=== PATIENT | female | born 1965 | race Two or more races ===

== ENCOUNTER 2020-01-05 23:15 | Emergency (ER) | payer OTHER ==
[~2020-01-05] VITALS: Ht 162.6 cm; Wt 63.5 kg
[2020-01-05] MEDS ORDERED: SODIUM CHLORIDE 0.9% 1,000 ML IV ONE (23:30)
[2020-01-05] MEDS ORDERED: ONDANSETRON HCL 4 MG/2 ML VIAL IV ONE (23:30)
[2020-01-06 00:46] VITALS: BP 138/81
[2020-01-06 00:52] LABS: Basophils # (auto) 0 10 ^3/uL (0-0.2); Basophils % (auto) 0.4 % (0.0-2.0); Eosinophils # (auto) 0 10 ^3/uL (0-0.8); Eosinophils % (auto) 0.3 % (0.0-7.0); Hematocrit 37.5 % (36.0-46.0); Hemoglobin 12.7 g/dL (12.2-16.2); Lymphocytes # (auto) 0.3 10 ^3/uL (0.4-5.4); Lymphocytes % (auto) 10.6 % (10.0-50.0); Mean Corpuscular Hemoglobin 29.4 pg (28.0-32.0); Mean Corpuscular Hgb Conc. 33.8 g/dL (32.0-36.0); Mean Corpuscular Volume 86.8 fL (80.0-100.0); Monocytes # (auto) 0.3 10 ^3/uL (0-1.3); Monocytes % (auto) 11.7 % (0.0-12.0); Neutrophils # (auto) 1.9 10 ^3/uL (1.6-8.6); Nucleated Red Blood Cells % 0.1 %; Platelet Count (auto) 96 10^3/uL (140-450); Red Blood Cells 4.32 10^6/uL (4.0-5.20); Red Cell Distribution Width 17.5 % (11.8-14.3); White Blood Cell 2.4 10^3/uL (4.4-10.8)
[2020-01-06 01:09] LABS: INR 0.96 (0.9-1.15); Partial Thromboplastin Time 31.9 sec (23.64-32.05)
[2020-01-06 01:12] LABS: Lactic Acid w/Reflex 2.6 mmol/L (0.4-2.0)
[2020-01-06 01:14] LABS: Alanine Aminotransferase 23 U/L (13-56); Albumin 4.1 g/dL (3.4-5.0); Anion Gap 13 (5-15); Aspartate Aminotransferase 27 U/L (15-37); BUN/Creatinine Ratio 14.3; Blood Urea Nitrogen 9 mg/dL (7-18); Calcium 8.5 mg/dL (8.5-10.1); Carbon Dioxide 22 mmol/L (21-32); Chloride 89 mmol/L (98-107); GFR African American 128 mL/min; GFR Non-African American 105 mL/min; Glucose 102 mg/dL (74-106); Magnesium 1.7 mg/dL (1.6-2.6); Potassium 3.2 mmol/L (3.5-5.1); Sodium 124 mmol/L (136-145)
[2020-01-06 01:19] LABS: Alkaline Phosphatase 70 U/L (45-117); Bilirubin, Total 0.5 mg/dL (0.2-1.0); Lactate Dehydrogenase 165 U/L (84-246); Total Protein 8.3 g/dL (6.4-8.2)
[2020-01-06 02:37] LABS: CRP High Sensitivity 1.02 mg/dL (< 0.3)
== END 2020-01-06 02:56 | disposition home or self-care (01) ==
LOC: ER 23:15 → EDBD 23:15 → ER 01-06 02:56
DX: U07.1 COVID-19 (principal); K29.00 Acute gastritis without bleeding; R51 Headache; R11.2 Nausea with vomiting, unspecified
CPT/HCPCS: 36415; 70450; 71045; 71250; 72125; 74176; 80053; 82728; 83605; 83615; 83735; 83880; 84443; 84484; 85025; 85379; 85610; 85730; 86141; 87070; 87804; 87880; 93005; 96361; 96374; 99285; C9803; J2405; J7030; U0003